=== PATIENT | male | born 1975 ===

== ENCOUNTER 2018-12-09 09:53 | Outpatient (CLI) | payer OTHER | END 2018-12-09 09:54 | disposition home or self-care (01) | LOC: C.LAB 09:53 | DX: R31.9 Hematuria, unspecified (principal) ==

== ENCOUNTER 2018-12-31 09:56 | Day surgery (SDC) | payer OTHER ==
[2018-12-31] MEDS ORDERED: LIDOCAINE 2% PF (2ML) ONE (11:40)
[2018-12-31] MEDS ORDERED: Bupivacaine HCl 0.5% PF (10 ml) Inj ONE (11:40)
[2018-12-31] MEDS ORDERED: Ciprofloxacin 400mg/200ml D5W 400 MG/200 ML BAG IVPB ONE (11:41)
[2018-12-31] MEDS ORDERED: Lidocaine 2% MPF (5 ml) Inj ONE (11:41)
[2018-12-31] MEDS ORDERED: Midazolam 2 MG/2 ML VIAL ONE (11:42)
[2018-12-31] MEDS ORDERED: Propofol 10 mg/ml Inj (20 ML) ONE ×2 (11:43→12:15)
[2018-12-31] MEDS ORDERED: Bacitracin Ointment 30 GM TUBE ONE (12:42)
[2018-12-31] MEDS ORDERED: HYDROmorphone 0.5 mg/0.5 ml ISec IVP PRN (12:58)
--- NOTE | 2018-12-31 13:08 | PCM.SURG1 ---
Surgeon's Initial Post Op Note - Surgeon's Notes Surgeon: gorge Projector Operator: none Type of Anesthesia: IV Sedation Anesthesia Administered By: Reta Pre-Operative Diagnosis: phimosis Operative Findings: phimosis Post-Operative Diagnosis: phimosis Operation Performed: circumcision Specimen/Specimens Removed: prepuce Estimated Blood Loss: EBL {In ML}: 1 Blood Products Given: N/A Drains Used: No Drains Post-Op Condition: Good Date of Surgery/Procedure: 12/31/18 Time of Surgery/Procedure: 13:09
[2018-12-31 14:07] VITALS: O2SAT 95
[2018-12-31 14:37] VITALS: BP 142/95; PULSE 87; RESP 18; TEMP 97.8
--- NOTE | 2019-01-01 03:45 | OP ---
PROCEDURE DATE: 12/31/2018 PREOPERATIVE DIAGNOSIS: Phimosis. POSTOPERATIVE DIAGNOSIS: Phimosis. PROCEDURE: Surgical incision. SURGEON: Daniel Olmedo MD FINDINGS: Marked phimosis with inflammation of the prepuce. Glans penis is normal. The meatal opening is normal. TECHNIQUE: This patient was placed in supine position. The external genitalia were prepped and draped in the usual sterile fashion. A ventral and dorsal slit incisions were performed in the prepuce. Two flaps of skin and mucosa were developed. These flaps were excised. Bleeders were thoroughly fulgurated. Some bleeders were clamped and ligated with 3-0 chromic. After this was accomplished, the remaining skin and mucosa were approximated with interrupted stitches of 2-0 chromic. No bleeding was present during the procedure. The base of the penis was injected with Xylocaine 2% and Marcaine 0.5%. Dressing was applied. The patient returned to recovery room in satisfactory condition. Daniel Olmedo MD
--- NOTE | 2019-01-03 06:31 | CON ---
DATE: 12/27/2018 MEDICAL CARDIOLOGY CLEARANCE REQUESTED BY: Daniel Olmedo MD This is a patient of Dr. Olmedo, who is having surgery this coming Thursday. HISTORY OF PRESENT ILLNESS: Requested to see this 43-year-old male due to impending urological surgery in the next few days. The patient has history of diabetes for about 10 years or so and borderline hypertension. Both of these entities very well controlled with some medication by a local physician in the [facility]. At this point in time, he denies having any vague chest pain, shortness of breath, any dizziness, or recent syncope. He has taken all his medications which will be listed below. PAST MEDICAL HISTORY: No other illnesses other than diabetes and hypertension mentioned above. PAST SURGICAL HISTORY: No surgical intervention in the past. ALLERGIES: HE IS ALLERGIC TO PENICILLIN IN THE FORM OF A RASH. SOCIAL HISTORY: He smokes about 3 cigarettes daily for several years. Does not drink any alcohol. MEDICATIONS: At this point in time includes long-acting insulin or basal insulin Basaglar 50 units twice a day, lisinopril 20 mg once a day, lovastatin 20 mg once a day, metformin 1000 mg once a day, as well as an antidepressant medication. FAMILY HISTORY: Maternal grandmother with diabetes. REVIEW OF SYSTEMS: Denies chest discomfort and shortness of breath. No dizziness, no syncope. Rest of the review of systems otherwise negative. PHYSICAL EXAMINATION: GENERAL: Reveals an adult male, very pleasant, cooperative, mildly overweight. VITAL SIGNS: His height is 68 inches, weight is with clothing here 206 pounds, blood pressure both of extremities similar 130 to 135/80, pulse regular about 70 to 80 per minute. SKIN: Warm and dry. No cyanosis. No edema. HEAD, EARS, NOSE, AND THROAT: Basically unremarkable for his age. NECK: Supple. No lymphadenopathy or thyromegaly. No bruits. CHEST: Showing symmetrical expansion. LUNGS: Totally clear to auscultation. CARDIOLOGIC: Jugular veins and carotids are unremarkable. Precordium is unremarkable. No thrill. Heart sounds normal in intensity and regular. No gross murmurs or gallops. ABDOMEN: Mildly obese. No localized tenderness or organomegaly. LOCOMOTOR AND CENTRAL NERVOUS SYSTEM: Unremarkable. COMPLEMENTARY DATA: Brief preadmission testing done at [facility] on 12/09/2018, includes an EKG which is normal. CBC was borderline. Leucocytosis borderline at 12,000. Hemoglobin and hematocrit is unremarkable. Basic metabolic profile is also unremarkable. Normal renal function. PSAs done by Dr. Olmedo is also normal and so is the coagulation profile. IMPRESSION: Diabetes, borderline hypertension by history, both well controlled. SUGGESTION: Presently medically stable and cleared to proceed with surgery under the direction of Dr. Olmedo. He has been advised to resume his medications as his physician in the area has instructed him. Christian Edward MD cc: Daniel Olmedo MD
== END 2018-12-31 14:40 | disposition home or self-care (01) ==
LOC: C.SDS 09:56
PROVIDERS: ATTEND Urology
DX: N47.1 Phimosis (principal); E11.9 Type 2 diabetes mellitus without complications; F17.210 Nicotine dependence, cigarettes, uncomplicated; Z79.4 Long term (current) use of insulin; R03.0 Elevated blood-pressure reading, without diagnosis of hypertension
CPT/HCPCS: 54001; 82948; 88304; J0744; J2001; J2250; J2704; J3010